=== PATIENT | male | born 1980 | race Caucasian/White ===

== ENCOUNTER 2025-05-18 00:01 | Day surgery (SDC) | payer OTHER, SELFPAY ==
[2025-04-27 14:51] VITALS: BMI 39.9
--- NOTE | 2025-05-18 11:24 | ECG_ITS ---
Test Date: 2025-05-18 11:31:53 Measurements Intervals Reading Rate: 78 P: 30 SD: 149 QRS: 14 QRSD: 102 T: 30 QT: 394 QTc: 449 Interpretive Statements SINUS RHYTHM WITH FREQUENT VENTRICULAR PREMATURE COMPLEXES IN A BIGEMINAL PATTERN ABNORMAL RHYTHM ECG No previous ECG available for comparison Electronically Signed On 05-18-2025 12:54:46 CDT by Solomon Butts M.D.
[2025-05-18 11:27] VITALS: BP 160/81; PULSE 56; RESP 18; TEMP 36.6; O2SAT 99; BMI 40.1
--- NOTE | 2025-05-18 11:36 | SUR.PREOP ---
Patient bradycardic upon arrival to pre op room, 50's on pulse ox while dipping down to low 30's. Patient then hooked up to clinical research monitor and appeared to be in bigemny. Patient reports only feeling extremely nervous for procedure. No other s/s. Dr. Brown notified and [address] Brown notified of EKG report and at bedside to see patient.
--- NOTE | 2025-05-18 11:43 | WPDANESPN ---
Anes - Prog Note Post-Op Date/Time: 05/18/25 11:43 Cardiovascular status: other (Bigeminy) Vital Signs: Last Vital Signs Temp 36.6 C 05/18/25 11:27 Pulse 56 L 05/18/25 11:27 Resp 18 05/18/25 11:27 BP 160/81 H 05/18/25 11:27 Pulse Ox 99 05/18/25 11:27 O2 Del Method Room Air 05/18/25 11:27 Pain Score (VAS): 0 Other Findings: Patient going in and out of Bigemin. This is undiagnosed. After speaking with cardiology, they also agreed this should be further evaluated prior to undergoing elective procedure. EGD & colonscopy cancelled and to be rescheduled after further work up.
== END 2025-05-18 11:54 | disposition home or self-care (01) ==
PROVIDERS: PCP Family Medicine; Visit Provider Internal Medicine Gastroenterology
PROC: 0DJ08ZZ Inspection of Upper Intestinal Tract, Via Natural or Artificial Opening Endoscopic (ICD-10-PCS; CPT 45378; principal; 2025-05-18 12:30)
DX: Z12.11 Encounter for screening for malignant neoplasm of colon (principal); K21.9 Gastro-esophageal reflux disease without esophagitis; R00.8 Other abnormalities of heart beat; Z53.09 Procedure and treatment not carried out because of other contraindication
CPT/HCPCS: 93005